=== PATIENT | female | born 1950 | race African-American/Black ===

== ENCOUNTER 2016-10-26 08:57 | Day surgery (SDC) | payer MEDICARE, OTHER ==
[~2016-10-26] VITALS: Ht 167.6 cm; Wt 65.9 kg
[~2016-10-26 08:57] MED LIST: FentaNYL CITRATE-PF 100 MCG/2 ML VIAL IVP ONE; LIDOCAINE HCL/PF 2% 5 ML VIAL IM ONE; MIDAZOLAM HCL 2 MG/2 ML VIAL IVP ONE; MOXIFLOXACIN HCL 0.5% 3 ML OPHTHALMIC SOLUTION OD ONE; VITAD5000 PO; [UNRECOGNIZED DRUG - CODE] PO
[2016-10-26] MEDS: TROPICAMIDE 1% 2 ML OPHTHALMIC SOLUTION OD SCH ×2 (09:56→10:02)
[2016-10-26] MEDS: PHENYLEPHRINE HCL 2.5% 2 ML OPHTHALMIC SOLUTION OD SCH ×2 (09:56→10:02)
[2016-10-26] MEDS ORDERED: DICLOFENAC SODIUM 0.1% 2.5 ML OPHTHALMIC SOLUTION OD ONE (11:00)
[2016-10-26] MEDS ORDERED: MOXIFLOXACIN HCL 0.5% 3 ML OPHTHALMIC SOLUTION OD ONE (11:00)
[2016-10-26] MEDS ORDERED: RINGERS SOLUTION,LACTATED 500 ML IV ONE (11:30)
[2016-10-26] MEDS ORDERED: HYALURONATE SOD/CHONDROITIN SOD 0.5 ML VIAL IO ONE (17:21)
[2016-10-26] MEDS ORDERED: DEXAMETHASONE SOD PHOS 4 MG/ML VIAL IVP ONE (17:21)
[2016-10-26] MEDS ORDERED: TETRACAINE HCL VISCOUS 0.5% 0.6 ML OPHTHALMIC SOLUTION OD ONE (17:21)
[2016-10-26] MEDS ORDERED: POVIDONE-IODINE 10% 15 ML SOLUTION UD TP ONE (17:21)
[2016-10-26] MEDS ORDERED: LIDOCAINE HCL/PF 1% 2 ML VIAL IM ONE (17:21)
[2016-10-26] MEDS ORDERED: HYALURONATE SODIUM 12 MG/ML 0.8 ML SYRINGE IO ONE (17:21)
[2016-10-31] MEDS ORDERED: PHENYLEPHRINE HCL 2.5% 2 ML OPHTHALMIC SOLUTION ONE (11:35)
[2016-10-31] MEDS ORDERED: DICLOFENAC SODIUM 0.1% 2.5 ML OPHTHALMIC SOLUTION ONE (11:35)
[2016-10-31] MEDS ORDERED: RINGERS SOLUTION,LACTATED 500 ML IV ONE (11:35)
[2016-10-31] MEDS ORDERED: TROPICAMIDE 1% 2 ML OPHTHALMIC SOLUTION ONE (11:35)
[2016-12-06] MEDS ORDERED: MULT-1203 PO (15:20)
[2016-12-06] MEDS ORDERED: VITA1TAB22 PO (15:20)
== END 2016-10-26 13:40 | disposition home or self-care (01) ==
LOC: SURGERY 08:57
PROVIDERS: ATTEND Specialist
DX: H25.011 Cortical age-related cataract, right eye (principal); I10 Essential (primary) hypertension
CPT/HCPCS: 66984; 93005; C1780; J1100; J2250; J3010; J3490 ×3

== ENCOUNTER 2016-12-07 07:35 | Day surgery (SDC) | payer MEDICARE, OTHER ==
[~2016-12-07] VITALS: Ht 163.8 cm; Wt 65.5 kg
[~2016-12-07 07:35] MED LIST changes: -LIDOCAINE HCL/PF 2% 5 ML VIAL IM ONE; -MOXIFLOXACIN HCL 0.5% 3 ML OPHTHALMIC SOLUTION OD ONE; +MULT-1203 PO; +VITA1TAB22 PO
[2016-12-07] MEDS ORDERED: DICLOFENAC SODIUM 0.1% 2.5 ML OPHTHALMIC SOLUTION ONE (07:55)
[2016-12-07] MEDS ORDERED: TROPICAMIDE 1% 2 ML OPHTHALMIC SOLUTION ONE (07:55)
[2016-12-07] MEDS ORDERED: PHENYLEPHRINE HCL 2.5% 2 ML OPHTHALMIC SOLUTION ONE (07:55)
[2016-12-07] MEDS ORDERED: MOXIFLOXACIN HCL 0.5% 3 ML OPHTHALMIC SOLUTION ONE (07:55)
[2016-12-07] MEDS ORDERED: MOXIFLOXACIN HCL 0.5% 3 ML OPHTHALMIC SOLUTION OS ONE (08:00)
[2016-12-07] MEDS ORDERED: RINGERS SOLUTION,LACTATED 500 ML IV ONE (08:00)
[2016-12-07] MEDS ORDERED: DICLOFENAC SODIUM 0.1% 2.5 ML OPHTHALMIC SOLUTION OS ONE (08:00)
[2016-12-07] MEDS ORDERED: HYDR25TA PO (08:22)
[2016-12-07] MEDS: TROPICAMIDE 1% 2 ML OPHTHALMIC SOLUTION OS SCH ×2 (08:48→08:53)
[2016-12-07] MEDS: PHENYLEPHRINE HCL 2.5% 2 ML OPHTHALMIC SOLUTION OS SCH ×2 (08:48→08:53)
[2016-12-07] MEDS ORDERED: HYALURONATE SODIUM 12 MG/ML 0.8 ML SYRINGE IO ONE ×2 (17:48→17:58)
[2016-12-07] MEDS ORDERED: TETRACAINE HCL VISCOUS 0.5% 5 ML OPHTHALMIC SOLUTION OS ONE ×2 (17:48→17:58)
[2016-12-07] MEDS ORDERED: POVIDONE-IODINE 10% 15 ML SOLUTION UD TP ONE ×2 (17:48→17:58)
[2016-12-07] MEDS ORDERED: LIDOCAINE HCL/PF 1% 2 ML VIAL IM ONE ×2 (17:48→17:58)
[2016-12-07] MEDS ORDERED: HYALURONATE SOD/CHONDROITIN SOD 0.5 ML VIAL IO ONE ×2 (17:48→17:58)
== END 2016-12-07 11:05 | disposition home or self-care (01) ==
LOC: SURGERY 07:35
PROVIDERS: ATTEND Specialist
DX: H25.012 Cortical age-related cataract, left eye (principal); I10 Essential (primary) hypertension; F41.9 Anxiety disorder, unspecified; Z98.41 Cataract extraction status, right eye; Z98.890 Other specified postprocedural states
CPT/HCPCS: 66984; C1780; J2250; J3010; J3490 ×2